=== PATIENT | female | born 1930 | race Caucasian/White ===

== ENCOUNTER → 2016-05-18 | Outpatient (CLI) | payer OTHER, BC | LOC: MMPC 09:00 | PROVIDERS: ATTEND Nurse Practitioner Family | DX: I10 Essential (primary) hypertension (principal) | CPT/HCPCS: 99214; G0463 ==

== ENCOUNTER → 2016-06-05 | Outpatient (CLI) | payer OTHER, BC ==
[2016-06-05 11:42] LABS: BILIRUBIN,TOTAL 0.8 mg/dL (0.3-1.2); CALCIUM 10.8 mg/dL (8.7-10.7); POTASSIUM 4.6 meq/L (3.8-5.2); TOTAL PROTEIN 7.7 g/dL (6.1-8.0)
[2016-06-08 10:59] LABS: METANEPHRINE FREE <0.20 nmol/L (<0.50)
== END ==
LOC: MOB LAB 10:42
PROVIDERS: ATTEND Nurse Practitioner Family
DX: R06.00 Dyspnea, unspecified (principal); I10 Essential (primary) hypertension; R42 Dizziness and giddiness
CPT/HCPCS: 36415; 80053; 83835; 83880; 84244

== ENCOUNTER → 2016-06-07 | Outpatient (CLI) | payer OTHER, BC ==
[2016-06-09 15:26] LABS: COLLECTION DURATION 24 h (())
[2016-06-09 18:53] LABS: URINE TOTAL VOLUME 550 mL (())
== END ==
LOC: LAB 08:09
PROVIDERS: ATTEND Nurse Practitioner Family
DX: I10 Essential (primary) hypertension (principal); R42 Dizziness and giddiness
CPT/HCPCS: 83835

== ENCOUNTER → 2016-06-08 | Outpatient (CLI) | payer OTHER, BC ==
--- NOTE | 2016-06-08 14:06 | DI ---
MRI BRAIN SCAN WITHOUT CONTRAST, 06/08/2016 12:39 PM: Clinical History: Dizziness. Previous Exam: None at this facility. Sequences: Sagittal T1; Axial [place] T2 and FLAIR. Axial diffusion weighted images with ADC mapping were also performed. The fourth ventricle is of normal size, shape, position and contour. The third and lateral ventricles are mildly dilated but are otherwise normal. There are multiple punctate periventricular white matte r hyperintensities bilaterally that extend into the watershed territory, consistent with small vessel ischemic disease. This amount of ischemic disease is appropriate for the patient's age. There is no cerebellar pontine angle mass in the views of both internal auditory canals have a normal appearance. Diffusion weighted imaging with ADC mapping is otherwise normal. There is mild cerebellar and modera tely severe cerebral atrophy There are no extracerebral mantels or shift of the midline structures. T he paranasal sinuses are normal. Readin. Small vessel ischemic disease. 2. Diffusion weighted imaging with ADC mapping is otherwise normal. 3. Mild cerebellar and moderately severe cerebral atrophy. 4. There is no evidence of a cerebellar pontine angle mass or obvious abnormality within the interna l auditory canals.
--- NOTE | 2016-06-08 16:11 | DI ---
DUPLEX COLOR DOPPLER CAROTID ULTRASOUND, 06/08/2016 12:40 PM: Clinical History: Dizziness. Previous Exam: None at this facility. Technique: 2D real time imaging is supplemented with duplex color doppler ultrasound imaging. RIGHT CAROTID ARTERY: 2D real time imaging of the right carotid system shows a normal appearance of the right carotid arter y, bulb, and the external and internal carotid arteries. Peak systolic velocities through the right c ommon carotid, the external carotid, and the internal carotid are 65 cm/s, 85 cm/s, and 73 cm/s, resp ectively. All values correspond to diameter stenoses of 0-49%. LEFT CAROTID ARTERY: 2D real time imaging of the left carotid system shows a normal appearance of the left common carotid artery, the carotid bulb, and the internal and external carotid arteries. Peak systolic velocities th rough the left common carotid, the external carotid, and the internal carotid are 94 cm/s, 72 cm/s, a nd 73 cm/s, respectively. All values correspond to diameter stenoses of 0-49%. VERTEBRAL ARTERIES: There is antegrade flow through both vertebral arteries Cardiac rhythm is regular. Peak systolic [place] through the visualized portions of the right and left vertebral arteries are 74 cm/s and 94 cm /s, respectively. These values correspond to diameter stenoses of 0-49%. There was sinus bradycardia present throughout the entire exam. The heart rate varied between 50-61 b eats per minute. Readin. There is no hemodynamically significant stenosis of either carotid system. 2. There is antegrade flow through both vertebral arteries. Cardiac rhythm is regular. 3. Sinus bradycardia with the heart rate varying between 50-61 beats per minute during the duration of this exam.
== END ==
LOC: US 12:32
PROVIDERS: ATTEND Nurse Practitioner Family
DX: R42 Dizziness and giddiness (principal); R00.1 Bradycardia, unspecified; I73.9 Peripheral vascular disease, unspecified; G31.9 Degenerative disease of nervous system, unspecified
CPT/HCPCS: 70551; 93880

== ENCOUNTER → 2016-06-11 | Outpatient (CLI) | payer OTHER, BC ==
--- NOTE | 2016-06-11 09:20 | DI ---
BILATERAL RENAL ULTRASOUND, 06/11/2016 7:50 AM: Clinical History: Labile hypertension. Previous Exam: None at this facility. Scans are performed through both kidneys in multiple projections. The right kidney measures 77 mm, an d the left kidney measures 82 mm. There is no solid or cystic mass in either kidney. There is no hydr onephrosis or hydroureter. Perfusion to both kidneys is symmetric and normal. The bladder is almost e mpty but normal. Bilateral ureteral jets are visualized. There is an estimated prevoid bladder volume of 25-30 mL. No post void films were obtained. Reading: Normal bilateral renal ultrasound. The bladder is barely filled but grossly normal.
== END ==
LOC: US 07:47
PROVIDERS: ATTEND Nurse Practitioner Family
DX: I10 Essential (primary) hypertension (principal); R42 Dizziness and giddiness
CPT/HCPCS: 76770

== ENCOUNTER → 2016-06-12 | Outpatient (CLI) | payer OTHER, BC ==
--- NOTE | 2016-06-12 14:16 | EKG ---
[address] [address] Measurements Intervals [place] Rate: 62 P: 63 [place]: 145 QRS: 81 QRSD: 80 T: 66 QT: 410 QTc: 416 Interpretive Statements SINUS RHYTHM POSSIBLE RIGHT VENTRICULAR CONDUCTION DELAY Compared to ECG 08/26/2015 10:35:30 No significant changes Electronically Signed On 06-12-16 17:04:47 MST by Austen Beltran [email or web address]
== END ==
LOC: MOB EKG 14:00
PROVIDERS: ATTEND Specialist
DX: R42 Dizziness and giddiness (principal); R06.02 Shortness of breath; I10 Essential (primary) hypertension; I49.1 Atrial premature depolarization; I47.1 Supraventricular tachycardia; I50.9 Heart failure, unspecified
CPT/HCPCS: 93005; 93010; 99204; G0463

== ENCOUNTER → 2016-06-26 | Outpatient (CLI) | payer OTHER, BC ==
--- NOTE | 2016-06-26 11:44 | DI ---
XR CXR 2VW PA/LAT,06/26/2016 11:00 AM: Clinical History: Hypertension. Previous Exam: None at this facility. Findings: PA and lateral views of the chest are obtained, and demonstrate diffuse COPD. Lungs are clear. The ca rdiomediastinum and bony thorax are unremarkable. Impression: No acute disease.
== END ==
LOC: MOB RAD 11:04
PROVIDERS: ATTEND Specialist
DX: I10 Essential (primary) hypertension (principal); J44.9 Chronic obstructive pulmonary disease, unspecified
CPT/HCPCS: 71020

== ENCOUNTER → 2016-06-27 | Outpatient (CLI) | payer OTHER, BC | LOC: MMPC 09:00 | PROVIDERS: ATTEND Nurse Practitioner Family | DX: I10 Essential (primary) hypertension (principal); H81.43 Vertigo of central origin, bilateral; F03.90 Unspecified dementia, unspecified severity, without behavioral disturbance, psychotic disturbance, mood disturbance, and anxiety | CPT/HCPCS: 99214; G0463 ==

== ENCOUNTER → 2016-07-04 | Outpatient (CLI) | payer OTHER, BC | LOC: US 12:39 | PROVIDERS: ATTEND Specialist | DX: I27.2 Other secondary pulmonary hypertension (principal); I35.1 Nonrheumatic aortic (valve) insufficiency; R06.00 Dyspnea, unspecified | CPT/HCPCS: 93306 ==

== ENCOUNTER → 2016-08-21 | Outpatient (CLI) | payer OTHER, BC | LOC: MMPC 09:00 | PROVIDERS: ATTEND Nurse Practitioner Family | DX: I10 Essential (primary) hypertension (principal); F03.90 Unspecified dementia, unspecified severity, without behavioral disturbance, psychotic disturbance, mood disturbance, and anxiety; M54.5 Low back pain | CPT/HCPCS: 99214; G0463 ==

== ENCOUNTER → 2016-09-20 | Outpatient (CLI) | payer OTHER, BC | LOC: MMPC 09:00 | PROVIDERS: ATTEND Nurse Practitioner Family | DX: M54.41 Lumbago with sciatica, right side (principal) | CPT/HCPCS: 99214; G0463 ==

== ENCOUNTER 2016-10-01 21:18 | Inpatient (IN) | payer OTHER, BC ==
[2016-10-01] MEDS ORDERED: Sodium Chloride 0.9% 1,000 ML PRIMARY IV ONE (21:42)
--- NOTE | 2016-10-01 21:50 | PDOC ---
Lower Extremity Problem HPI - General Chief Complaint: Lower Extremity Problem/Injury Stated Complaint: Leg pain, with nausea Date Seen by Provider: 10/01/16 Time Seen by Provider: 21:44 Source: POSITIVE: Patient, Spouse, Other (Son) Exam Limitations: POSITIVE: Other (Dementia) Nurse's Notes Reviewed & Considered: Yes - History of Present Illness Initial Comments: This very pleasant 85-year-old demented lady comes in today with a chief complaint of leg swelling in her left lower extremity and back pain. Patient denies any headache, no chest pain or shortness of breath, no nausea vomiting or diarrhea, no fever chills or sweats, no rashes. Patient is alert and oriented to person and place but not time. Body Location Affected: REPORTS: Lower Extremity (L), Back Timing: REPORTS: Unknown Duration: Unknown Severity: Moderate Recent Injury: REPORTS: No Location at Time of Onset: REPORTS: Home Quality: REPORTS: Cramping Modifying Factors: REPORTS: Movement, Rest Similar Symptoms Previously: No Recent Care Received: REPORTS: Denies Any Prior Injuries Related to Current Complaint?: No - Patient Home Medications Home Medications: Home Medications Multivitamin with Minerals [One Daily 50 Plus] 1 tab PO QD tab 09/03/13 Cyanocobalamin (Vitamin B-12) [Vitamin B12] 2,500 mcg PO DAILY tab 08/21/16 [place]-3 Fatty Acids/Fish Oil [[place] 3 Fish Oil Softgel] 1 each PO DAILY cap Apixaban [Eliquis] 1 tab PO BID #60 tablet 10/08/16 Chlorthalidone 0.5 tab PO QD PRN #30 tab 10/08/16 Memantine HCl 1 tab PO BID #60 tab 10/08/16 Verapamil HCl [Verapamil Sr] 1 cap PO QD #30 cap 10/08/16 - Patient Allergies Allergies/Adverse Reactions: Allergies Allergy/AdvReac Type Severity Reaction Status Date / Time sulfamethoxazole Allergy Mild RASH Verified 10/04/16 08:28 trimethoprim Allergy Mild RASH Verified 10/04/16 08:28 ROS - Limitations ROS Limitations: Mental Impairment (Further review of systems is unavailable because the patient's dementia.) Lower Ext Problem Exam - General Appearance General Appearance: POSITIVE: Alert, Cooperative, No Acute Distress, No Evidence of Trauma - Extremities Lower Extremity: POSITIVE: Tenderness (Positive Homans left calf), Swelling, Pedal Edema Joint Exam: POSITIVE: Joints Normal, Normal ROM, Normal Gait, Normal Weight Bearing Vascular: POSITIVE: No Vascular Compromise, Full Pulses, Equal Pulses - Neuro / Psych Neuro/Psych: POSITIVE: Sensation Normal, Motor Normal, Oriented to Person, Oriented to Place, Disoriented to Time - Neck / Back / Pelvis Back / Neck: POSITIVE: Normal Inspection, Normal ROM Pelvis: Stable by compression - Skin Skin: POSITIVE: Normal Color, Warm, Dry, No Rash - HEENT HEENT: POSITIVE: Head Inspection Nml, Eyes Inspection Nml, Ears Inspection Nml, Nose Inspection Nml, Oral/Dental Inspect. Nml, Pharynx Inspect. Nml, PERRL, EOMI - Respiratory / CVS Respiratory / CVS: POSITIVE: No Respiratory Distress, Breath Sounds Normal, Regular Rate/Rhythm, Heart Sounds Normal - Abdomen Abdomen: Soft: (All Quadrants), Normal Bowel Sounds: (All Quadrants), Denies Tenderness: (All Quadrants), No Splenomegaly: (All Quadrants), No Hepatomegaly: (All Quadrants), No Guarding: (All Quadrants), No Rebound: (All Quadrants), No Palpable Pulse: (All Quadrants), No Palpabale Mass: (All Quadrants), No Distention: (All Quadrants), No Rigidity: (All Quadrants) Images - Uploaded Photos Uploaded Photos: Lower Ext Problem Progress - Results Reviewed by me Lab Results Reviewed: Yes - Patient's Progress Re-Examine Time: 22:24 Status: POSITIVE: Unchanged MDM / ED Course: Patient was evaluated, IV started, blood drawn and sent to the lab for studies, radiographic examinations as well as EKG were obtained. Findings: Liver functions show AST and ALTs to be elevated. Potassium is elevated at 5.1. Creatinine is elevated at 1.6, this is an increase from 1 just a short 3 months ago. Assessment: 1 swelling of left lower extremity. #2 derangement of LFTs. #3 hypokalemia. #4 renal insufficiency. 5 dementia. - Consult Consulting MD will see pt:: POSITIVE: [facility] [place] Admit Counseled: POSITIVE: Patient, Family, RE: Lab Results, RE: Radiology Results, RE : DX Patient Care Time - Estimated PCT Patient Care Time (In Minutes): 30 Vital Signs - VS Reviewed Vital Signs Reviewed: Yes Discharge Clinical Impression: DVT (deep venous thrombosis) Discharge Disposition: Admit to Inpatient Condition: Stable Date Decision to Admit to Inpatient: 10/01/16 Time Decision to Admit to Inpatient: 22:24
[2016-10-01 21:54] LABS: BASOPHILS # (AUTO) 0.06 10*3/UL; BASOPHILS % (AUTO) 0.6 % (0-1); EOSINOPHILS # (AUTO) 0.31 10*3/UL; EOSINOPHILS % (AUTO) 2.9 % (0-8); HEMATOCRIT 38.7 % (37.0-47.0); HEMOGLOBIN 12.5 g/dL (12.0-16.0); LYMPHOCYTES # (AUTO) 1.41 10*3/uL; MEAN CORPUSCULAR HGB CONC 32.3 g/dL (33-37); MEAN PLATELET VOLUME 10.9 FL (7.4-12.2); MONOCYTES # (AUTO) 0.86 10*3/UL (0.3-0.8); NEUTROPHILS % (AUTO) 74.7 % (50-80); PLATELET MORPHOLOGY COMMENT NORMAL MORPHOLOGY (NORM); RBC MORPHOLOGY COMMENT NORMAL MORPHOLOGY (NORM); RED BLOOD COUNT 4.03 10^6/uL (4.20-5.40); WBC MORPHOLOGY COMMENT NORMAL MORPHOLOGY (NORM)
--- NOTE | 2016-10-01 21:56 | EKG ---
[address] [address] Measurements Intervals [place] Rate: 75 P: 65 [place]: 141 QRS: 63 QRSD: 80 T: 57 QT: 367 QTc: 396 Interpretive Statements SINUS RHYTHM Compared to ECG 06/12/2016 15:19:19 No significant changes Electronically Signed On 10-02-16 08:16:46 MDT by Edmar Zamarripa MD [id number]
[2016-10-01 22:06] LABS: BLOOD UREA NITROGEN 39 mg/dL (7-22); BUN/CREATININE RATIO 24.37 (6-20); C-REACTIVE PROTEIN 1.7 mg/dL (0.0-0.9); CALCIUM 10.6 mg/dL (8.7-10.7); MAGNESIUM 2.8 mg/dL (1.6-2.4); SERUM ALBUMIN 4.1 g/dL (3.5-4.8)
[2016-10-01 22:32] LABS: LIPASE 148 IU/L (23-300)
[2016-10-02] MEDS ORDERED: NORMAL SALINE 10 ML SYRINGE FLUSH IVP PRN (00:26)
[2016-10-02] MEDS ORDERED: HEPARIN 5000 UNIT/1 ML SUBCUT SCH (00:26)
[2016-10-02] MEDS ORDERED: LIDOCAINE W/ SODIUM BICARB 0.5 ML SYR SUBD PRN (00:26)
[2016-10-02] MEDS ORDERED: VERAPAMIL HCL PO SCH (00:26)
[2016-10-02] MEDS ORDERED: CALCIUM CARBONATE 500 MG (TUMS) CHEWABLE TABLET PO PRN (00:26)
[2016-10-02] MEDS ORDERED: ONDANSETRON 4 MG/2 ML VIAL IVP PRN (00:26)
[2016-10-02] MEDS ORDERED: HYDROmorphone 2 MG/1 ML IVP PRN (00:26)
--- NOTE | 2016-10-02 00:26 | DI ---
HISTORY: Low back pain. COMPARISON: CT bone density performed 12/13/2009. FINDINGS: AP and lateral views of the lumbar spine are obtained, and demonstrate a compression defor mity of the superior endplate of the fifth lumbar vertebral body. There is also compression of the s uperior endplate of the first lumbar vertebral body. This compression was seen back in 2009. There is a sclerotic lesion involving the superior endplate of the third lumbar vertebral body as wel l. Mild facet hypertrophy is noted. Vague spotty calcifications are noted over the abdomen which may represent prior administration of or al contrast. IMPRESSION: 1. Compression deformities of the superior endplates of L1 and L5. The former was seen dating back t o 2009, but the L5 compression deformity is new since 2009. 2. Sclerotic focus involving the superior endplate of L3. This measures 1.6 x 0.9 x 0.9 cm. RECOMMENDATION: Consider MRI lumbar spine for further evaluation as this would be able to grade the L5 fracture or acute the and the sclerotic lesion involving the superior endplate of the third lumbar vertebral body. NOTIFICATION: The above findings were phoned to Lucas Ferraro in the ER Department on 10/02/2016 at 02:3 8 AM EST.
--- NOTE | 2016-10-02 00:32 | DI ---
HISTORY: Left leg swelling. COMPARISON: None available. TECHNIQUE: Multiple grayscale and color Doppler sonographic images are obtained through the deep vei ns of the left lower extremity. FINDINGS: Examination demonstrates noncompressibility of a long segment of the superficial femoral a rtery through popliteal artery. There is still some visible flow with respiratory variation. IMPRESSION: 1. Evidence of a nonocclusive thrombus through the left superficial femoral vein through popliteal ve in. NOTIFICATION: The above findings were phoned to Lucas Ferraro in the ER Department on 10/02/2016 at 02:3 8 AM EST. NOTE: The interpreting Radiologist was not present at the time of ultrasound interrogation.
--- NOTE | 2016-10-02 00:40 | PDOC ---
History and Physical - History of Present Illness Date and Time of Service: 10/01/2016, 2330 Chief Complaint: Leg pain History of Present Illness: This very pleasant 85-year-old female who unfortunately suffers from moderate dementia and cannot provide a great history. The history is obtained from her son and from her . The story goes that earlier this month sometime around the , the patient developed back pain was quite severe. She was pulling weeds in her flower garden and when she came up she developed back pain. She's been in rehabilitation with physical therapy since that time, has been on narcotics, recently Aleve, and the back pain has reduced. After therapy today and over the last 3 days, the patient has had increased leg pain bilaterally, and the patient came into the emergency room tonight for that. Her has been trying some ankle sprains and muscle creams and he felt like they were having some minimal success. He tried to convince patient to consider coming into the hospital a couple days ago but it was decided to wait things out and see how the creams and medications like Aleve would help. As there were not helping today, the patient's convince the patient, who likes to be called "Ronda", that she should come in for evaluation and she agreed. No fevers and no chills. This pain has not been present before. The patient has been noticeably immobile over the past couple of weeks with her back injury. In the emergency room when I saw the patient, she was having her ultrasound actively done to screen for DVT and it appeared positive for DVT in the femoral vein on the left lower extremity. The patient was also noted to have renal failure with an increased creatinine, and elevated potassium, and liver enzymes that were in the 300s. Past Medical History Medical History: 1. Hypertension. 2. Dementia. 3. Osteoporosis. 4. History of breast cancer status post left mastectomy. Remote. Surgical History: 1. Left mastectomy. 2. Cholecystectomy. 3. Hysterectomy Pertinent Family History: Father had history of prostate problems and after prostate surgery Hospital. Mother had heart disease reportedly and dementia. Past Social History: Does not smoke or drink. for 67 years. Has children that live here in [place]. She lives at home with her . Tobacco Use: Never Smoker Substance Use Type: None Alcohol Use: None Medication / Allergies Home Medications: Home Medications Medication Instructions Recorded Confirmed Type Multivitamin with Minerals [One 1 tab PO QD tab 09/03/13 10/01/16 History Daily 50 Plus] Olmesartan Medoxomil 1 tab PO QHS #30 tab 06/27/16 10/01/16 Clinic Chlorthalidone 0.5 tab PO QD #30 tab 08/21/16 10/01/16 Clinic Cyanocobalamin (Vitamin B-12) 2,500 mcg PO DAILY tab 08/21/16 10/01/16 History [Vitamin B12] Memantine HCl 1 tab PO BID #60 tab 08/21/16 10/01/16 Clinic [place]-3 Fatty Acids/Fish Oil 1 each PO DAILY cap 08/21/16 10/01/16 History [[place] 3 Fish Oil Softgel] Verapamil HCl [Verapamil Sr] 1 cap PO QD #30 cap 08/21/16 10/01/16 Clinic Oxycodone HCl 1 tab PO Q4-6H PRN #30 tab 09/27/16 10/01/16 Clinic Naproxen Sodium [Aleve] 220 mg PO PRN PRN 10/01/16 10/01/16 History Tramadol HCl 50 mg PO BEDTIME 10/01/16 10/01/16 History Allergies/Adverse Reactions: Allergies Allergy/AdvReac Type Severity Reaction Status Date / Time sulfamethoxazole Allergy Mild RASH Verified 10/01/16 21:34 trimethoprim Allergy Mild RASH Verified 10/01/16 21:34 Review of Systems - Review of Systems ROS Unobtainable: Due to Mental Status (This very difficult to obtain a reliable review of systems given the patient's dementia, but it is as per noted below and otherwise negative and as per history present illness.) - Constitutional Constitutional: REPORTS: Other (Negative for fevers and chills, but positive for recent weakness due to back pain. Positive for immobility.) - Respiratory Respiratory: DENIES: Negative System Review, Cough, Sputum, Dyspnea At Rest, Dyspnea with Exertion, Pleuritic Pain, Hemoptysis, Wheezing, Other, See HPI - Cardiovascular Cardiovascular: DENIES: Negative System Review, Chest Pain, Edema, Syncope, Palpitations, Orthopnea, Paroxysmal Nocturnal Dyspnea, Other, See HPI - Gastrointestinal Gastrointestinal / Abdominal: REPORTS: Nausea, Constipation (It should be due to narcotics, but apparently the nausea was improved with a bowel movement today ) - Genitourinary Genitourinary: DENIES: Negative System Review, Pain, Burning, Hematuria, Incontinence, Urgency, Hesitant Stream, Decreased Stream, Nocutria, Discharge, Sexual Dyfunction, Other, See HPI - Musculoskeletal Musculoskeletal: REPORTS: Calf Pain, Other (Leg pain bilaterally.) - Neurological Neurologic: REPORTS: Memory Loss (With dementia. No difference noted on Namenda. Could not tolerate Exelon) Exam - Vitals Vital Signs: Vital Signs - Last Taken Temperature 97.3 F 10/01/16 21:20 Pulse Rate 83 10/01/16 21:20 Respiratory Rate 16 10/01/16 21:20 Blood Pressure 136/64 10/01/16 21:20 Pulse Ox 99 10/01/16 21:20 - General General Appearance: POSITIVE: No Acute Distress, Cooperative - Head Head Exam: POSITIVE: Normal Inspection, Normocephalic, Atraumatic - Eye Eye Exam: POSITIVE: No Scleral Icterus - ENT ENT Exam: POSITIVE: Mucous Membranes Moist - Neck Neck Exam: POSITIVE: Normal Inspection, No Tenderness, No Thyromegaly - Respiratory Respiratory Exam: POSITIVE: Clear to Auscultation - Bilaterally, Breathing Non Labored, Normal to Percussion and Palpation - Cardiovascular Cardiovascular Exam: POSITIVE: RRR, No Murmur, No Clicks, No Gallops, No Rubs, No JVD - GI/Abdominal GI/Abdominal Exam: POSITIVE: Normal Bowel Sounds, Non Tender, Non Distended, Soft - Rectal Rectal Exam: POSITIVE: Deferred - External Exam: POSITIVE: Deferred Exam: POSITIVE: Deferred - Extremities Extremities Exam: POSITIVE: No Clubbing Present, No Edema Present, No Cyanosis Present, Calf Tenderness (Mild on left side.) - Back Back Exam: POSITIVE: No CVA Tenderness - Neurological Neurological Exam: POSITIVE: Alert, Speech Intact / Clear, Moves All Extremities Equally, Altered Additional Neurological Exam Details: The patient is clearly demented. She has an upbeat mood and does not seem depressed. No description of behavioral disturbances. - Psychiatric Psychiatric Exam: POSITIVE: Normal Mood - Central Line Examination Central Line Present on Admission: No Results - Labs CBC and BMP: 10/01/16 21:46 10/01/16 21:46 Labs - Last 24 Hours: Laboratory Results 10/01/16 10/01/16 Range/Units 21:46 21:52 WBC 10.70 (4.8-10.8) 10^3/uL RBC 4.03 L (4.20-5.40) 10^6/uL Hgb 12.5 (12.0-16.0) g/dL Hct 38.7 (37.0-47.0) % MCV 96.0 (81-99) FL MCH 31.0 (27-31) PG MCHC 32.3 L (33-37) g/dL RDW Std Deviation 43.5 (39-50) fL RDW Coeff of Deshawn 12.8 (11.5-14.5) % Plt Count 181 (140-350) 10*3/uL MPV 10.9 (7.4-12.2) FL Immature Gran % (Auto) 0.6 (0-5) % Neut % (Auto) 74.7 (50-80) % Lymph % (Auto) 13.2 (10-50) % [place] % (Auto) 8.0 (5-15) % Eos % (Auto) 2.9 (0-8) % Baso % (Auto) 0.6 (0-1) % Immature Gran # (Auto) 0.06 10*3/UL Neut # (Auto) 8.00 10*3/UL Lymph # (Auto) 1.41 10*3/uL [place] # (Auto) 0.86 H (0.3-0.8) 10*3/UL Eos # (Auto) 0.31 10*3/UL Baso # (Auto) 0.06 10*3/UL WBC Morphology Comment Normal morphology (NORM) Plt Morphology Comment Normal morphology (NORM) RBC Morph Comment Normal morphology (NORM) Sodium 137 (135-145) meq/L Potassium 5.7 H (3.8-5.2) meq/L Chloride 97 L (98-112) meq/L Carbon Dioxide 30 (23-33) meq/L Anion Gap 10 (5-20) BUN 39 H (7-22) mg/dL Creatinine 1.6 H (0.50-1.20) mg/dL Estimated GFR Associate Program Manager BUN/Creatinine Ratio 24.37 H (6-20) Glucose 98 (78-110) mg/dL Calculated Osmolality 292.0 (267-292) mOsm/kg Calcium 10.6 (8.7-10.7) mg/dL Magnesium 2.8 H (1.6-2.4) mg/dL Total Bilirubin 1.0 (0.3-1.2) mg/dL AST 305 H (8-39) IU/L ALT 309 H (9-52) IU/L Alkaline Phosphatase 280 H (38-126) IU/L C-Reactive Protein 1.7 H (0.0-0.9) mg/dL Total Protein 7.4 (6.1-8.0) g/dL Albumin 4.1 (3.5-4.8) g/dL Globulin 3.3 (2.50-4.10) g/dL Albumin/Globulin Ratio 1.20 L (1.3-2.0) mg/g Amylase 159 H (30-110) U/L Lipase 148 (23-300) IU/L Assessment and Plan - Patient Problems (1) DVT, femoral, acute Current Visit: Yes Status: Acute Qualifiers: Laterality: left Qualified Description: Acute deep vein thrombosis (DVT ) of femoral vein of left lower extremity Qualifier Code(s): (I82.412) Acute embolism and thrombosis of left femoral vein (2) Deep venous thrombosis of left popliteal vein Current Visit: Yes Status: Acute Qualifiers: Chronicity: acute Qualified Description: Acute deep vein thrombosis ( DVT) of popliteal vein of left lower extremity Qualifier Code(s): (I82.432 ) Acute embolism and thrombosis of left popliteal vein (3) Acute renal failure Current Visit: Yes Status: Acute Qualifiers: Acute renal failure type: unspecified Qualified Description: Acute renal failure, unspecified acute renal failure type Qualifier Code(s): ( N17.9) Acute kidney failure, unspecified (4) Elevated liver enzymes Current Visit: Yes Status: Acute (5) Hypertension Current Visit: Yes Status: Acute Qualifiers: Hypertension type: essential hypertension Qualified Description: Essential hypertension Qualifier Code(s): (I10) Essential (primary) hypertension (6) Dementia Current Visit: Yes Status: Acute Qualifiers: Dementia type: Alzheimer's disease Alzheimer's disease onset: late- onset Dementia behavioral disturbance: without behavioral disturbance Qualified Description: Late onset Alzheimer's disease without behavioral disturbance Qualifier Code(s): (G30.1) Alzheimer's disease with late onset , (F02.80) Dementia in other diseases classified elsewhere without behavioral disturbance - Assessment / Plan Additional Assessment/Plan Details: Admit the patient. IV fluids for the renal failure and hold chlorthalidone and angiotensin receptor dileep. I think it is prerenal azotemia. Discontinue the anti-inflammatory for now. Patient has been on Aleve for back pain at home. Get a right upper quadrant ultrasound to evaluate the liver. Check labs tomorrow. I'll let the patient eat after her ultrasound is done. I discussed anticoagulants with the patient, her , and her son who is a pharmacist. They chose eliquis and will start that. I think this is provoked, so I would presume to think that we can treat this for 3-6 months and then discontinue therapy. I did recommend 6 months. I discussed CODE STATUS but the patient is not sure if she wants to be full code or not. She wants to discuss this further with her and son. The plan above was discussed in detail, and the patient, her , and her son agree.
[2016-10-02] MEDS ORDERED: Apixaban 5 MG TABLET PO ONE (00:59)
[2016-10-02 01:19] LABS: BILIRUBIN,URINE NEGATIVE (NEG); CLARITY,URINE CLEAR (CLEAR); COLOR,URINE YELLOW; GLUCOSE, URINE (UA) NEGATIVE (NEG); NITRATE,URINE NEGATIVE (NEG); OCCULT BLOOD,URINE NEGATIVE (NEG); PROTEIN,URINE NEGATIVE (NEG); URINE SAMPLE TYPE CATH SPECIMEN; UROBILINOGEN,URINE 0.2 EU/dL (0.2)
--- NOTE | 2016-10-02 01:46 | DI ---
HISTORY: Elevated liver enzymes. TECHNIQUE: Sonographic images of the abdomen were obtained, and the images were submitted for interp retation. FINDINGS: Normal right upper quadrant status post cholecystectomy with limited evaluation of the panc reas. IMPRESSION: 1. Normal right upper quadrant status post cholecystectomy with limited evaluation of the pancreas. NOTE: The interpreting Radiologist was not present at the time of ultrasound interrogation.
[2016-10-02] MEDS: Sodium Chloride 0.9% 1,000 ML PRIMARY IV SCH ×3 (02:04→19:13)
[2016-10-02 04:49] LABS: BASOPHILS # (AUTO) 0.04 10*3/UL; BASOPHILS % (AUTO) 0.5 % (0-1); EOSINOPHILS # (AUTO) 0.28 10*3/UL; EOSINOPHILS % (AUTO) 3.7 % (0-8); HEMOGLOBIN 11.1 g/dL (12.0-16.0); LYMPHOCYTES # (AUTO) 1.33 10*3/uL; MEAN CORPUSCULAR HEMOGLOBIN 30.7 PG (27-31); MEAN CORPUSCULAR HGB CONC 31.7 g/dL (33-37); MEAN CORPUSCULAR VOLUME 96.7 FL (81-99); MEAN PLATELET VOLUME 11.2 FL (7.4-12.2); MONOCYTES # (AUTO) 0.61 10*3/UL (0.3-0.8); NEUTROPHILS # (AUTO) 5.32 10*3/UL; NEUTROPHILS % (AUTO) 69.9 % (50-80); RED BLOOD COUNT 3.62 10^6/uL (4.20-5.40)
[2016-10-02 04:58] LABS: BLOOD UREA NITROGEN 36 mg/dL (7-22); BUN/CREATININE RATIO 25.71 (6-20); CALCIUM 9.8 mg/dL (8.7-10.7); SERUM ALBUMIN 3.4 g/dL (3.5-4.8)
[2016-10-02 06:11] LABS: PLATELET MORPHOLOGY COMMENT NORMAL MORPHOLOGY (NORM); RBC MORPHOLOGY COMMENT NORMAL MORPHOLOGY (NORM); WBC MORPHOLOGY COMMENT NORMAL MORPHOLOGY (NORM)
[2016-10-02] MEDS: VERAPAMIL 240 MG PO SCH (08:38)
[2016-10-02] MEDS ORDERED: VERAPAMIL HCL 120 MG PO SCH (09:00)
[2016-10-02] MEDS ORDERED: ACETAMINOPHEN 325 MG TABLET PO PRN (16:56)
[2016-10-02] MEDS ORDERED: traMADol 50 MG TABLET PO PRN (16:56)
--- NOTE | 2016-10-02 17:53 | PDOC(PROG) ---
Date and Time of Service: 10/02/2016, 1750 Interval History: Patient seen and evaluated a couple of times today. No completes of chest pain , shortness breath, nausea or vomiting. Back pain is better. Leg pain seems to be better. Creatinine is improved. X-ray of lumbar spine shows new L5 compression fracture and a sclerotic lesion at L3. Objective : Data - Labs CBC and BMP: 10/02/16 04:40 10/02/16 04:40 Labs - Last 24 Hours: Laboratory Results 10/02/16 10/02/16 Range/Units 00:00 04:40 WBC 7.61 (4.8-10.8) 10^3/uL RBC 3.62 L (4.20-5.40) 10^6/uL Hgb 11.1 L (12.0-16.0) g/dL Hct 35.0 L (37.0-47.0) % MCV 96.7 (81-99) FL MCH 30.7 (27-31) PG MCHC 31.7 L (33-37) g/dL RDW Std Deviation 43.1 (39-50) fL RDW Coeff of Deshawn 12.7 (11.5-14.5) % Plt Count 146 (140-350) 10*3/uL MPV 11.2 (7.4-12.2) FL Immature Gran % (Auto) 0.4 (0-5) % Neut % (Auto) 69.9 (50-80) % Lymph % (Auto) 17.5 (10-50) % Glenn % (Auto) 8.0 (5-15) % Eos % (Auto) 3.7 (0-8) % Baso % (Auto) 0.5 (0-1) % Immature Gran # (Auto) 0.03 10*3/UL Neut # (Auto) 5.32 10*3/UL Lymph # (Auto) 1.33 10*3/uL Glenn # (Auto) 0.61 (0.3-0.8) 10*3/UL Eos # (Auto) 0.28 10*3/UL Baso # (Auto) 0.04 10*3/UL WBC Morphology Comment Normal morphology (NORM) Plt Morphology Comment Normal morphology (NORM) RBC Morph Comment Normal morphology (NORM) Sodium 138 (135-145) meq/L Potassium 4.7 (3.8-5.2) meq/L Chloride 103 (98-112) meq/L Carbon Dioxide 27 (23-33) meq/L Anion Gap 8 (5-20) BUN 36 H (7-22) mg/dL Creatinine 1.4 H (0.50-1.20) mg/dL Estimated GFR Paper Sorter BUN/Creatinine Ratio 25.71 H (6-20) Glucose 86 (78-110) mg/dL Calculated Osmolality 292.0 (267-292) mOsm/kg Calcium 9.8 (8.7-10.7) mg/dL Total Bilirubin 1.0 (0.3-1.2) mg/dL AST 354 H (8-39) IU/L ALT 339 H (9-52) IU/L Alkaline Phosphatase 258 H (38-126) IU/L Total Protein 6.2 (6.1-8.0) g/dL Albumin 3.4 L (3.5-4.8) g/dL Globulin 2.8 (2.50-4.10) g/dL Albumin/Globulin Ratio 1.20 L (1.3-2.0) mg/g Ur Collection Type Cath specimen Urine Color Yellow Urine Clarity Clear (CLEAR) Urine pH 7.0 (5.0-8.5) Ur Specific Edwards 1.010 (1.005-1.030) Urine Protein Negative (NEG) mg/dl Urine Glucose (UA) Negative (NEG) mg/dL Urine Ketones Negative (NEG) Urine Occult Blood Negative (NEG) Urine Nitrate Negative (NEG) Urine Bilirubin Negative (NEG) Urine Urobilinogen 0.2 (0.2) EU/dL Ur Leukocyte Esterase Negative (NEG) Ur Culture Indicated? Culture not set - Imaging X-Ray Status: Image Reviewed by Me (I looked at the lumbar films. There are 2 compression fractures, L1 and L5. There is a sclerotic lesion that has increased opacity that the radiologist felt was sclerotic.) Objective : Exam - General General Appearance: No Acute Distress, Cooperative Additional General Exam Details: Vital Signs - Last Taken Temperature 97.6 F 10/02/16 17:00 Pulse Rate 74 10/02/16 17:00 Respiratory Rate 20 10/02/16 17:00 Blood Pressure 143/48 10/02/16 17:00 Pulse Ox 94 06/27/17 17:00 - Head Head Exam: Normal Inspection, Normocephalic, Atraumatic - Eye Eye Exam: No Scleral Icterus - ENT ENT Exam: Mucous Membranes Moist - Respiratory Respiratory Exam: Clear to Auscultation - Bilaterally, Breathing Non Labored - Cardiovascular Cardiovascular Exam: RRR, No Murmur, No Clicks, No Gallops, No Rubs, No JVD - GI/Abdominal GI/Abdominal Exam: Normal Bowel Sounds, Non Tender, Non Distended, Soft - Extremities Extremities Exam: No Clubbing Present, No Edema Present, No Cyanosis Present Additional Extremities Exam Details: No calf tenderness today. - Neurological Neurological Exam: Alert, Oriented x 3, No Facial Droop, Speech Intact / Clear, Moves All Extremities Equally Assessment and Plan - Patient Problems (1) DVT, femoral, acute Current Visit: Yes Status: Acute Qualifiers: Laterality: left Qualified Description: Acute deep vein thrombosis (DVT ) of femoral vein of left lower extremity Qualifier Code(s): (I82.412) Acute embolism and thrombosis of left femoral vein (2) Deep venous thrombosis of left popliteal vein Current Visit: Yes Status: Acute Qualifiers: Chronicity: acute Qualified Description: Acute deep vein thrombosis ( DVT) of popliteal vein of left lower extremity Qualifier Code(s): (I82.432 ) Acute embolism and thrombosis of left popliteal vein (3) Acute renal failure Current Visit: Yes Status: Acute Comment: Improving, probably prerenal. Qualifiers: Acute renal failure type: unspecified Qualified Description: Acute renal failure, unspecified acute renal failure type Qualifier Code(s): ( N17.9) Acute kidney failure, unspecified (4) Elevated liver enzymes Current Visit: Yes Status: Acute Comment: Increase to some degree. Unclear etiology. Ultrasound negative. (5) Hypertension Current Visit: Yes Status: Acute Qualifiers: Hypertension type: essential hypertension Qualified Description: Essential hypertension Qualifier Code(s): (I10) Essential (primary) hypertension (6) Dementia Current Visit: Yes Status: Acute Qualifiers: Dementia type: Alzheimer's disease Alzheimer's disease onset: late- onset Dementia behavioral disturbance: without behavioral disturbance Qualified Description: Late onset Alzheimer's disease without behavioral disturbance Qualifier Code(s): (G30.1) Alzheimer's disease with late onset , (F02.81) Dementia in other diseases classified elsewhere with behavioral disturbance - Assessment / Plan Additional Assessment/Plan Details: I think we should go ahead and proceed with an MRI scan to look at the sclerotic lesion in detail. I do not think the patient is a good surgical candidate regardless of findings. If suspicious for cancer, can consider biopsy. Pain control. Continue IV fluids. Continue eliquis Discussed with family members. They agree with the plan. Check labs tomorrow.
[2016-10-02] MEDS ORDERED: Apixaban Tab 2.5 MG TABLET PO SCH (21:00)
[2016-10-02] MEDS: Apixaban 5 MG TABLET PO SCH (21:09)
[2016-10-03] MEDS: Sodium Chloride 0.9% 1,000 ML PRIMARY IV SCH ×2 (04:00→14:22)
[2016-10-03 06:08] LABS: BUN/CREATININE RATIO 20.83 (6-20); CALCIUM 9.1 mg/dL (8.7-10.7)
[2016-10-03] MEDS: VERAPAMIL 240 MG PO SCH (09:27)
[2016-10-03] MEDS: Apixaban 5 MG TABLET PO SCH ×2 (09:27→20:35)
[2016-10-03] MEDS ORDERED: MEMANTINE 10 MG TABLET PO ONE (13:19)
[2016-10-03] MEDS: MEMANTINE 10 MG TABLET PO SCH (13:34)
--- NOTE | 2016-10-03 15:01 | PDOC(PROG) ---
Date and Time of Service: 09/25/2016, 1500 Interval History: Patient seen a little bit earlier this afternoon. Resting easily. Knows that she is in a healthcare setting can't give me much more details than that. No nausea or vomiting. No chest pain and no shortness breath. Family is concerned that the patient is a little more confused today, and maybe this is an effective the Namenda being discontinued. I have resumed that medication. Objective : Data - Labs CBC and BMP: 10/02/16 04:40 10/03/16 05:40 Labs - Last 24 Hours: Laboratory Results 10/03/16 Range/Units 05:40 Sodium 141 (135-145) meq/L Potassium 3.9 (3.8-5.2) meq/L Chloride 112 (98-112) meq/L Carbon Dioxide 23 (23-33) meq/L Anion Gap 6 (5-20) BUN 25 H (7-22) mg/dL Creatinine 1.2 (0.50-1.20) mg/dL Estimated GFR (>60 ml/min/1.73m(2)) BUN/Creatinine Ratio 20.83 H (6-20) Glucose 85 (78-110) mg/dL Calculated Osmolality 294.0 H (267-292) mOsm/kg Calcium 9.1 (8.7-10.7) mg/dL - Imaging MRI Status: Other (MRI scan is done, I viewed it, but could be some mild compression at L4-L5, but unclear. There is a compression fracture at L5. Age indeterminate. We cannot use contrast. And on my view there appears to be increased signal in the L3 vertebral body, and I'm awaiting the report on that.) Objective : Exam - General General Appearance: No Acute Distress, Cooperative Additional General Exam Details: Vital Signs - Last Taken Temperature 98.2 F 10/03/16 11:57 Pulse Rate 63 10/03/16 11:57 Respiratory Rate 16 10/03/16 11:57 Blood Pressure 109/52 10/03/16 11:57 Pulse Ox 95 10/03/16 11:57 - Respiratory Respiratory Exam: Clear to Auscultation - Bilaterally, Breathing Non Labored - Cardiovascular Cardiovascular Exam: RRR, No Murmur, No Clicks, No Gallops, No Rubs, No JVD - GI/Abdominal GI/Abdominal Exam: Normal Bowel Sounds, Non Tender, Non Distended, Soft - Extremities Extremities Exam: No Clubbing Present, No Edema Present, No Cyanosis Present Additional Extremities Exam Details: No further calf tenderness or leg pain or ankle pain. - Neurological Neurological Exam: Alert, No Facial Droop, Speech Intact / Clear, Moves All Extremities Equally, Altered Assessment and Plan - Patient Problems (1) DVT, femoral, acute Current Visit: Yes Status: Acute Qualifiers: Laterality: left Qualified Description: Acute deep vein thrombosis (DVT ) of femoral vein of left lower extremity Qualifier Code(s): (I82.412) Acute embolism and thrombosis of left femoral vein (2) Deep venous thrombosis of left popliteal vein Current Visit: Yes Status: Acute Qualifiers: Chronicity: acute Qualified Description: Acute deep vein thrombosis ( DVT) of popliteal vein of left lower extremity Qualifier Code(s): (I82.432 ) Acute embolism and thrombosis of left popliteal vein (3) Compression fracture of L5 lumbar vertebra Current Visit: Yes Status: Acute (4) Elevated liver enzymes Current Visit: Yes Status: Acute (5) Hypertension Current Visit: Yes Status: Acute Qualifiers: Hypertension type: essential hypertension Qualified Description: Essential hypertension Qualifier Code(s): (I10) Essential (primary) hypertension (6) Dementia Current Visit: Yes Status: Acute Qualifiers: Dementia type: Alzheimer's disease Alzheimer's disease onset: late- onset Dementia behavioral disturbance: without behavioral disturbance Qualified Description: Late onset Alzheimer's disease without behavioral disturbance Qualifier Code(s): (G30.1) Alzheimer's disease with late onset , (F02.81) Dementia in other diseases classified elsewhere with behavioral disturbance (7) Acute renal failure Current Visit: Yes Status: Resolved Qualifiers: Acute renal failure type: unspecified Qualified Description: Acute renal failure, unspecified acute renal failure type Qualifier Code(s): ( N17.9) Acute kidney failure, unspecified - Assessment / Plan Additional Assessment/Plan Details: Overall, renal function is improved. I think we can stop fluids at this point and saline lock IV. I will resume the Namenda. It's possible that coming off that medication and confusion has worsened, but most likely this is dementia in the hospital setting. I confirmed with the nurse the patient did not receive any narcotics last night , but I will discontinue those as the patient is not complaining of an overt amount of pain that would need narcotics at this point. We will stick with Tylenol for pain control when necessary. I am also going to reorder PT and OT. Continue eliquis for DVT for 3-6 months and then consider discontinuing as I do think this is a provoked DVT in the setting of an L5 compression fracture and decreased mobility. Await MRI results. Check CMP tomorrow to look at the liver enzymes. If they are still elevated, consider CT scan with triphasic contrast to look for any potential issues. No family here to discuss plan with today. I'll try to discuss with them when I can see them again.
--- NOTE | 2016-10-03 15:47 | PT.PROG ---
Progress Note Progress Note: 10/03/2016 2:00-2:30 S: Pt. hurt her back gardening about 1 month ago and for some reason she could not remember it started to really bother her so she came to the hospital. Over that month long period her function decreased and she had to start relying on a walker for mobility around her house and in the community. She lives with her and her house has 6 stairs to get into and 10 stairs to get up and down stairs to do laundry. She states she has had difficulty getting in and out of bed and getting into and out of her bathroom. Her bathroom is narrow and does not allow for the walker to be transported in, but they do have handrails on the wall and by the toilet. She states that she wants to be able to mow her lawn and take care of her house again. PMH: Medical History: 1. Hypertension. 2. Dementia. 3. Osteoporosis. 4. History of breast cancer status post left mastectomy. Remote. Surgical History: 1. Left mastectomy. 2. Cholecystectomy. 3. Hysterectomy O: Pt. walked down to PT from her room with a walker, recieved heat for 15 min, and performed exercise including seated marches, LAQ, sit to stands, step ups onto a 2" box, and a small obstacle course involving hurdles. Pt. then safely and effectively ambulated back to her room with walker assist A: Pt. has pain in her back, general weakness, and a decreased level of function. She also has problems with cognition and memory. Pt. would benefit from skilled PT to restore function and strength while allowing her back to safely heal. Problem List: 1. pain 2. general weakness 3. decreased function Short Term Goals: 1. decrease subjective pain to 3/10 with activity 2. perform 10x sit to stand 3. safely go up and down 10 stairs E Commerce Specialist Goals: 1. decrease pain to 0/10 with activity 2. perform 10x sit to betting clerks under 40 sec. 3. safely go up and down 20 stairs Treatment Plan: pt. will see PT 2x per day during the week and 1x per day on the weekend Initial Treatment: see objective Shashi Avendano [facility]
--- NOTE | 2016-10-03 23:16 | DI ---
MRI LUMBAR SPINE W/O CN,10/03/2016 11:04 AM: Clinical History: Back pain and sclerotic L3 lesion. Previous Exam: None at this facility. Findings: Multiplanar MR images are obtained through the lumbar spine without contrast. Bony alignment is anatomic. There is a compression deformity involving the superior endplate of L5 wi th some marrow edema suggesting an ongoing process. There is a compression deformity of the superior endplate of the L1 level as well without any marrow edema. The spinal cord descends normally with a normal conus at the L1 level. There is facet hypertrophy noted. There is no evidence of spondylolysis nor spondylolisthesis. The major vascular flow voids are unremarkable. The kidneys are unremarkable. Adrenals and spleen are unremarkable but not well evaluated. Individual intervertebral disc spaces: L1/2: There is compression of the superior endplate of the first lumbar vertebral body. There is a broad-based disc bulge at this level contributing to mild right and mild left neural kori inal narrowing with mild central canal stenosis. L2/3: There is disc desiccation and a broad-based disc bulge with annular fissuring and some facet an d ligamentum flavum hypertrophy contributing to mild central canal stenosis. There is mild to moderat e bilateral neural foraminal narrowing. L3/4: There is a broad-based disc bulge with annular fissuring and disc desiccation and combining wit h facet and ligamentum flavum hypertrophy to cause mild central canal stenosis and mild bilateral chelsy ral foraminal narrowing. L4/5: There is disc desiccation and a broad-based disc bulge and a compression deformity of the super ior endplate of L5 with some posterior protrusion of the superior endplate contributing to severe gamaliel tral canal stenosis with severe right and moderate left neural foraminal narrowing. L5/S1: The disc height is preserved and signal is preserved. There is some facet hypertrophy. There i s moderate to severe left and moderate right lateral recess stenosis. Impression: L1/2: There is compression of the superior endplate of the first lumbar vertebral body. There is a broad-based disc bulge at this level contributing to mild right and mild left neural kori inal narrowing with mild central canal stenosis. L2/3: There is disc desiccation and a broad-based disc bulge with annular fissuring and some facet an d ligamentum flavum hypertrophy contributing to mild central canal stenosis. There is mild to moderat e bilateral neural foraminal narrowing. L3/4: There is a broad-based disc bulge with annular fissuring and disc desiccation and combining wit h facet and ligamentum flavum hypertrophy to cause mild central canal stenosis and mild bilateral chelsy ral foraminal narrowing. L4/5: There is disc desiccation and a broad-based disc bulge and a compression deformity of the super ior endplate of L5 with some posterior protrusion of the superior endplate contributing to severe gamaliel tral canal stenosis with severe right and moderate left neural foraminal narrowing. L5/S1: The disc height is preserved and signal is preserved. There is some facet hypertrophy. There i s moderate to severe left and moderate right lateral recess stenosis.
[2016-10-04] MEDS: Apixaban 5 MG TABLET PO SCH (08:20)
[2016-10-04] MEDS: MEMANTINE 10 MG TABLET PO SCH (08:20)
[2016-10-04] MEDS: VERAPAMIL 240 MG PO SCH (08:20)
[2016-10-04 09:58] LABS: BLOOD UREA NITROGEN 21 mg/dL (7-22); BUN/CREATININE RATIO 16.15 (6-20); SERUM ALBUMIN 3.7 g/dL (3.5-4.8)
--- NOTE | 2016-10-04 10:28 | OTI REPORT ---
Thank you for the referral of Delia Taylor. She was seen on 10/03/16 for an occupational therapy inpatient evaluation secondary to an L5 compression fracture. SUBJECTIVE: The patient is an 85-year-old female. The patient reports she is feeling pretty well. The patient reports that she lives at home in [place] with her . Prior to admission the patient did not drive; she reports that her drives. The patient enjoys working in her flower garden. The patient reports she was sitting down in her flower bed and got up and started to have back pain. The patient reports that her home has six stairs upon entrance through the front door to get upstairs. There are hand rails on one side. There is no ramp. There are three steps to get to the back porch. The patient reports there is a basement and the laundry room is located in the basement. There is carpeting and throw rugs throughout the house as well as hardwood suresh. Bathroom set up includes a tub/shower combo with grab bars. The patient reports that she likes to take baths and is able to use the grab bars to get up at prior level of functioning. She does report that her uses a shower chair so she does have one available if she is unable to sit down in the bathtub; however, she would like to return to taking baths upon return to home. There are grab bars inside the shower and by the toilet, which is a standard toilet. The patient reports she sleeps in a standard bed and utilizes a front wheeled walker as well as a cane to get around inside her home. At prior level of function the patient completed laundry. She does report that she has to throw the clothes downstairs or walks them downstairs if it is just a small load. Her completes cooking tasks within the home. She does complete cleaning and discussed whether or not she would have someone help with cleaning upon discharge. Her completes grocery shopping and as stated above, completes all driving tasks including picking up prescriptions. She does have some assistance available within the house including her spouse. She would like to discharge to home. The patient does report some dizziness secondary to vertigo. She reports that she sits up slowly from her bed and usually just waits for the dizzy spells to pass. The patient reports no pain or concerns with upper extremity range of motion or strength. PAST MEDICAL HISTORY: Past medical history can be found in the patient's medical record. OBJECTIVE FINDINGS: General observations: The patient was oriented to person/place/reason for hospitalization. She was unable to identify the correct date; however, she did identify that it was the month of September. Pain: The patient reports no pain at rest and a pain level of 8/10 on the verbal analog scale (0=no pain, 10=worst pain) with movement in the low back region. Range of motion/Strength: Range of motion and strength of the upper extremities were tested bilaterally. Range of motion for shoulder flexion, abduction, elbow flexion/extension, wrist flexion/extension, internal/external rotation, and finger range of motion was within functional limits bilaterally. The patient demonstrates strength of 4/5 for upper extremities bilaterally with no concerns. Ambulation: The patient ambulated with use of a front wheeled walker with no assistance required for balance. Transfers: The patient performed sit to stand transfers with modified independence with use of walker once standing. Activities of daily living: The patient performed seated showering task with hand held shower with modified independence with the use of a shower chair and supervision for safety. The patient was able to wash and dry upper and lower extremities and back with no concerns. The patient dressed independently following shower including upper and lower extremities and donning shoes. The patient reports that she has a surgical technology instructor available at home and was not interested in a new surgical technology instructor or a sock aide as she is able to don and doff socks independently. The patient performed toileting task with modified independence with use of grab bars and the use of a raised toilet seat. Cognition: The patient also participated in the Basilio Cognitive Assessment ( MoCA) to assess cognitive functioning. The patient scored 17/30 which correlates with a MODIFIED cognitive impairment but is on the border with MILD. Specific deficits include short term memory and recall. Further cognitive testing is recommended. The patient does report that she receives assistance from her for some cognitive tasks such as filling her daily pill boxes for the week. ASSESSMENT: Problem List: Decreased cognitive functioning Decreased ability to perform activities of daily living Pain Generalized weakness Short-Term Goals: To be met by discharge from inpatient: Patient will perform simulated or complete bathing tasks to include getting in and out of the bathtub with the use of grab bars safely. Patient will report a pain level less than or equal to 3/10. Patient will increase bilateral upper extremity strength to 4+/5. Long-Term Goals: To be met following discharge from inpatient: Patient will return to home at prior level of functioning with assistance from as needed for daily activities including cooking and grocery shopping as well as cognitive assistance as needed to perform independently and safely within the home. TREATMENT PLAN: Patient will be seen B.I.D during the week and one time per day over the weekend as an inpatient until discharge. It is recommended that the patient receive further cognitive testing to ensure safety upon return to home. INITIAL TREATMENT: Treatment today consisted of the initial evaluation followed by ADLs including showering task to include washing and drying upper and lower extremities, dressing task to include dressing upper and lower extremities, toileting including toilet transfers and cleansing, and functional ambulation with front wheeled walker, and sit to stand transfers with use of front wheeled walker. Dictated by: BURAK Carranza/TIMOTHY Supervised by: EDGAR Welch/Thong BARLOW
--- NOTE | 2016-10-04 12:08 | PT.PROG ---
Progress Note Progress Note: S. Patient stated that she is feeling better this morning. However she continues to have back pain and pain in her legs. O. Patient ambulated 175 feet to the therapy gym where she had heat on her back x 10 minutes then was requested to return to her room. she ambulated 175 feet back to her room where she performed seated exercises in the form of; long arc quads, heel toe raises, marches and sit to stands all x 10 bilaterally. A. Patient tolerated exercises well, she continues to struggle with pain in her legs however she was able to perform exercises and would continue to benefit from skilled therapy to increase strength, mobility and endurance. P. Continue POC.
[2016-10-04 14:16] VITALS: RESP 18; TEMP 97.8
--- NOTE | 2016-10-04 14:45 | DI ---
CT ABD W/CN AND PELVIS W/CN,10/04/2016 11:03 AM: Clinical History: Elevated liver enzymes. Previous Exam: CT bone density performed January 15, 2012 Findings: Multiple helically acquired CT images are obtained through the abdomen and pelvis following the intra venous administration of contrast, and demonstrate a hiatal hernia which was not seen on the prior ex am. The liver demonstrates normal enhancement pattern without focal lesions. The gallbladder is not seen. The common bile duct is prominent but within normal limits for patient's age measuring 8 mm in diameter. The pancreas is normal. The adrenals and kidneys are unremarkable. The spleen is unremarkable. There is a small left pleural effusion. There are multiple colonic diverticula noted and a large amount of stool throughout the colon. There is no CT evidence of acute diverticulitis. Patient is status post hysterectomy. The urinary bladder i s unremarkable. Mild degenerative changes of the spine are noted. There is a dense focus involving the superior endplate of the third lumbar vertebral body most consis tent with a bone island. There is a compression deformity of the fifth lumbar vertebral body predominantly involving compressi on of the superior L5 endplate. There is also a compression deformity of the superior endplate of the third lumbar vertebral body. Impression: 1. Hiatal hernia. 2. No CT evidence of metastatic disease to the liver. 3. Compression deformities of the fifth and third lumbar vertebral bodies.
--- NOTE | 2016-10-04 16:15 | OT.PROG ---
Progress Note Progress Note: S: Pt reports that her back is feeling better today and that she is ready to go home. O: Pt was seen fro 15:15 to 15:55 for skilled occupational therapy related to generalized strengthening. Pt completed UE bike X 5 min on low resistance. Pt completed UE strengthening on wall pulleys for shoulder extension, triceps, biceps, and rows 1.5 kg X 10-20 bilaterally. MHP was applied to low back X 10 min. to reduce pain for pt, while pt completed bilateral hand strengthening for gross grasp. A: Pt did well with UE exercise and reports being tired following therapeutic exercise. Pt performed all transfers and ambulation with FWW safely. P: Continue POC. BURAK Carranza/TIMOTHY
--- NOTE | 2016-10-04 16:24 | PT.PROG ---
Progress Note Progress Note: 10/04/2016 4:00-4:30 S: pt. reports she is feeling better than she did yesterday O: pt. recieved heat and performed exercise including marches and LAQ x10 2# seated clams and ball sqeezes x10, 10x sit to stand and step ups on 2# box 5x each leg. she finished therapy with a walk back to her room A: pt. is becomin more functional with the exercise, and has a lower subjective pain report with movement. P: continue to progress functional activity as tolerated.
--- NOTE | 2016-10-04 16:59 | DCSUMMARY ---
Hospitalization Summary Admit Date: 10/01/16 Discharge Date: 10/04/16 Primary Diagnosis:: resolved acute renal failure Secondary Diagnosis:: L5 compression fracture Acute DVT of the superficial femoral and popliteal veins on the left leg. Elevated liver enzymes of unclear etiology. Hospital Course: This very pleasant 85-year-old female who suffers from dementia who came in with complaints of bilateral leg pain and was found to have a left lower extremity DVT. It was nonocclusive, but was present in the superficial femoral vein and the popliteal vein as well. The patient was also noted to be in renal failure, acutely, and she was admitted. In terms of her renal failure, chlorthalidone and angiotensin receptor dileep were held. These were not resumed and I think the patient should just continue off of these. Her baseline creatinine appears to be about 1.2 and she probably has stage III chronic kidney disease with a clearance somewhere between 40 and 60 mL's per minute. She seemed to do okay in terms of verapamil and her systolic pressures were mostly in the 100s to 140s range with some variability. No evidence of SVT during the hospital stay but she has had this in the past I think verapamil makes sense to continue. In terms of the DVT, we discussed anticoagulants for therapy, including risks and benefits and bleeding risks and reversibility components or lack thereof, and the family opted for eliquis. We started this at 10 mg twice daily dosing and will drop that to 5 mg twice a day for 3-6 months in the next 4 days. I think this is a provoked blood clot with in mobility in the setting of what we found and determined to be an L5 compression fracture. MRI scan was done of the back and x-ray was done of the back, and there is a lot of arthritic changes, spinal stenosis, some nerve root compressions, and an L1 and an L5 compression fracture as well as an L3 intravertebral body bony island. I advised no surgery and continued physical therapy for the L5 compression fracture. The AST and ALT and alkaline phosphatase showed isolated elevation. We did a CT scan of the abdomen and pelvis, an ultrasound of the right upper quadrant, and reviewed medications and could not find a cause for this. There appears to be no evidence of metastatic lesions in the liver. At least at this time. I have ordered a viral hepatitis panel and think that should be reviewed in the clinic. Given the resolution of all these issues above, the patient today states that she's not having any chest pain, no shortness of breath, and she seems ready to go home. Her family seems comfortable with that as well. We did discuss one last issue of the dementia. I recommend initially stopping Namenda as as a single agent does not, to use it for dementia and thus affecting this can certainly be questioned. However the patient had a day of worsening altered mental status that improved after resumption of Namenda. For now we will continue that. The patient's that he can try to determine at home if it seems helpful or not. It seems helpful for her mood and she was much happier in terms of her disposition on the Namenda than not. Assessment and Plan: 1. As per discharge assessments noted 2. Disposition: Patient is discharged home. 3. Condition on discharge, stable and improved. 4. Diet: regular diet 5. Activities: resume normal activities and continue physical therapy 6. Follow-Up: 1. See Bonnie Rubio next week 2. 7. Medications at the Time of Discharge: Home Medications Medication Instructions Recorded Confirmed Type Multivitamin with Minerals [One 1 tab PO QD tab 09/03/13 10/01/16 History Daily 50 Plus] Cyanocobalamin (Vitamin B-12) 2,500 mcg PO DAILY tab 08/21/16 10/01/16 History [Vitamin B12] Memantine HCl 1 tab PO BID #60 tab 08/21/16 10/01/16 [facility] [place]-3 Fatty Acids/Fish Oil 1 each PO DAILY cap 08/21/16 10/01/16 History [[place] 3 Fish Oil Softgel] Verapamil HCl [Verapamil Sr] 1 cap PO QD #30 cap 08/21/16 10/01/16 Clinic Apixaban [Eliquis] 5 mg PO BID #60 tablet 10/04/16 Rx 8. Time, care, counseling and coordination of care for this discharge is greater than 30 minutes. Exam - Vitals Vital Signs: Vital Signs Temperature 97.8 F Temperature Source Temporal Artery Scan Pulse Rate [Apical] 64 Pulse Rate [Pulse Oximeter] 65 Respiratory Rate 18 Blood Pressure [Right Arm] 149/66 Pulse Ox 95 Oxygen Delivery Method Room Air Height 5 ft 2 in Weight 121 lb 3.2 oz - General General Appearance: POSITIVE: No Acute Distress, Cooperative - Eye Eye Exam: POSITIVE: No Scleral Icterus - ENT ENT Exam: POSITIVE: Mucous Membranes Moist - Respiratory Respiratory Exam: POSITIVE: Clear to Auscultation - Bilaterally, Breathing Non Labored - Cardiovascular Cardiovascular Exam: POSITIVE: RRR, No Murmur, No Clicks, No Gallops, No Rubs, No JVD - GI/Abdominal GI/Abdominal Exam: POSITIVE: Normal Bowel Sounds, Non Tender, Non Distended, Soft - Extremities Extremities Exam: POSITIVE: No Clubbing Present, No Edema Present, No Cyanosis Present - Neurological Neurological Exam: POSITIVE: Alert, Normal Gait (With walker.), No Facial Droop , Speech Intact / Clear, Moves All Extremities Equally, Altered - Psychiatric Psychiatric Exam: POSITIVE: Normal Affect, Normal Mood Data Perinent Studies: Laboratory Results 10/01/16 10/01/16 10/02/16 Range/Units 21:46 21:52 00:00 WBC 10.70 (4.8-10.8) 10^3/uL RBC 4.03 L (4.20-5.40) 10^6/uL Hgb 12.5 (12.0-16.0) g/dL Hct 38.7 (37.0-47.0) % MCV 96.0 (81-99) FL MCH 31.0 (27-31) PG MCHC 32.3 L (33-37) g/dL RDW Std Deviation 43.5 (39-50) fL RDW Coeff of Deshawn 12.8 (11.5-14.5) % Plt Count 181 (140-350) 10*3/uL MPV 10.9 (7.4-12.2) FL Immature Gran % (Auto) 0.6 (0-5) % Neut % (Auto) 74.7 (50-80) % Lymph % (Auto) 13.2 (10-50) % [place] % (Auto) 8.0 (5-15) % Eos % (Auto) 2.9 (0-8) % Baso % (Auto) 0.6 (0-1) % Immature Gran # (Auto) 0.06 10*3/UL Neut # (Auto) 8.00 10*3/UL Lymph # (Auto) 1.41 10*3/uL [place] # (Auto) 0.86 H (0.3-0.8) 10*3/UL Eos # (Auto) 0.31 10*3/UL Baso # (Auto) 0.06 10*3/UL WBC Morphology Comment Normal morphology (NORM) Plt Morphology Comment Normal morphology (NORM) RBC Morph Comment Normal morphology (NORM) Sodium 137 (135-145) meq/L Potassium 5.7 H (3.8-5.2) meq/L Chloride 97 L (98-112) meq/L Carbon Dioxide 30 (23-33) meq/L Anion Gap 10 (5-20) BUN 39 H (7-22) mg/dL Creatinine 1.6 H (0.50-1.20) mg/dL Estimated GFR Crutching Contractor BUN/Creatinine Ratio 24.37 H (6-20) Glucose 98 (78-110) mg/dL Calculated Osmolality 292.0 (267-292) mOsm/kg Calcium 10.6 (8.7-10.7) mg/dL Magnesium 2.8 H (1.6-2.4) mg/dL Total Bilirubin 1.0 (0.3-1.2) mg/dL AST 305 H (8-39) IU/L ALT 309 H (9-52) IU/L Alkaline Phosphatase 280 H (38-126) IU/L C-Reactive Protein 1.7 H (0.0-0.9) mg/dL Total Protein 7.4 (6.1-8.0) g/dL Albumin 4.1 (3.5-4.8) g/dL Globulin 3.3 (2.50-4.10) g/dL Albumin/Globulin Ratio 1.20 L (1.3-2.0) mg/g Amylase 159 H (30-110) U/L Lipase 148 (23-300) IU/L Ur Collection Type Cath specimen Urine Color Yellow Urine Clarity Clear (CLEAR) Urine pH 7.0 (5.0-8.5) Ur Specific [place] 1.010 (1.005-1.030) Urine Protein Negative (NEG) mg/dl Urine Glucose (UA) Negative (NEG) mg/dL Urine Ketones Negative (NEG) Urine Occult Blood Negative (NEG) Urine Nitrate Negative (NEG) Urine Bilirubin Negative (NEG) Urine Urobilinogen 0.2 (0.2) EU/dL Ur Leukocyte Esterase Negative (NEG) Ur Culture Indicated? Culture not set 10/02/16 10/03/16 10/04/16 Range/Units 04:40 05:40 09:48 WBC 7.61 (4.8-10.8) 10^3/uL RBC 3.62 L (4.20-5.40) 10^6/uL Hgb 11.1 L (12.0-16.0) g/dL Hct 35.0 L (37.0-47.0) % MCV 96.7 (81-99) FL MCH 30.7 (27-31) PG MCHC 31.7 L (33-37) g/dL RDW Std Deviation 43.1 (39-50) fL RDW Coeff of Deshawn 12.7 (11.5-14.5) % Plt Count 146 (140-350) 10*3/uL MPV 11.2 (7.4-12.2) FL Immature Gran % (Auto) 0.4 (0-5) % Neut % (Auto) 69.9 (50-80) % Lymph % (Auto) 17.5 (10-50) % [place] % (Auto) 8.0 (5-15) % Eos % (Auto) 3.7 (0-8) % Baso % (Auto) 0.5 (0-1) % Immature Gran # (Auto) 0.03 10*3/UL Neut # (Auto) 5.32 10*3/UL Lymph # (Auto) 1.33 10*3/uL [place] # (Auto) 0.61 (0.3-0.8) 10*3/UL Eos # (Auto) 0.28 10*3/UL Baso # (Auto) 0.04 10*3/UL WBC Morphology Comment Normal morphology (NORM) Plt Morphology Comment Normal morphology (NORM) RBC Morph Comment Normal morphology (NORM) Sodium 138 141 141 (135-145) meq/L Potassium 4.7 3.9 3.6 L (3.8-5.2) meq/L Chloride 103 112 109 (98-112) meq/L Carbon Dioxide 27 23 24 (23-33) meq/L Anion Gap 8 6 8 (5-20) BUN 36 H 25 H 21 (7-22) mg/dL Creatinine 1.4 H 1.2 1.3 H (0.50-1.20) mg/dL Estimated GFR Crutching Contractor Crutching Contractor BUN/Creatinine Ratio 25.71 H 20.83 H 16.15 (6-20) Glucose 86 85 97 (78-110) mg/dL Calculated Osmolality 292.0 294.0 H 294.0 H (267-292) mOsm/kg Calcium 9.8 9.1 10.0 (8.7-10.7) mg/dL Magnesium (1.6-2.4) mg/dL Total Bilirubin 1.0 0.7 (0.3-1.2) mg/dL AST 354 H 319 H (8-39) IU/L ALT 339 H 423 H (9-52) IU/L Alkaline Phosphatase 258 H 331 H (38-126) IU/L C-Reactive Protein (0.0-0.9) mg/dL Total Protein 6.2 6.5 (6.1-8.0) g/dL Albumin 3.4 L 3.7 (3.5-4.8) g/dL Globulin 2.8 2.8 (2.50-4.10) g/dL Albumin/Globulin Ratio 1.20 L 1.30 (1.3-2.0) mg/g Amylase (30-110) U/L Lipase (23-300) IU/L Ur Collection Type Urine Color Urine Clarity (CLEAR) Urine pH (5.0-8.5) Ur Specific [place] (1.005-1.030) Urine Protein (NEG) mg/dl Urine Glucose (UA) (NEG) mg/dL Urine Ketones (NEG) Urine Occult Blood (NEG) Urine Nitrate (NEG) Urine Bilirubin (NEG) Urine Urobilinogen (0.2) EU/dL Ur Leukocyte Esterase (NEG) Ur Culture Indicated? Patient Problems - Patient Problem List (1) DVT, femoral, acute Current Visit: Yes Status: Acute Qualifiers: Laterality: left Qualified Description: Acute deep vein thrombosis (DVT ) of femoral vein of left lower extremity Qualifier Code(s): (I82.412) Acute embolism and thrombosis of left femoral vein (2) Deep venous thrombosis of left popliteal vein Current Visit: Yes Status: Acute Qualifiers: Chronicity: acute Qualified Description: Acute deep vein thrombosis ( DVT) of popliteal vein of left lower extremity Qualifier Code(s): (I82.432 ) Acute embolism and thrombosis of left popliteal vein (3) Compression fracture of L5 lumbar vertebra Current Visit: Yes Status: Acute (4) Elevated liver enzymes Current Visit: Yes Status: Acute (5) Hypertension Current Visit: Yes Status: Acute Qualifiers: Hypertension type: essential hypertension Qualified Description: Essential hypertension Qualifier Code(s): (I10) Essential (primary) hypertension (6) Dementia Current Visit: Yes Status: Acute Qualifiers: Dementia type: Alzheimer's disease Alzheimer's disease onset: late- onset Dementia behavioral disturbance: without behavioral disturbance Qualified Description: Late onset Alzheimer's disease without behavioral disturbance Qualifier Code(s): (G30.1) Alzheimer's disease with late onset , (F02.81) Dementia in other diseases classified elsewhere with behavioral disturbance (7) Acute renal failure Current Visit: Yes Status: Resolved Qualifiers: Acute renal failure type: unspecified Qualified Description: Acute renal failure, unspecified acute renal failure type Qualifier Code(s): ( N17.9) Acute kidney failure, unspecified
--- NOTE | 2016-10-05 12:25 | OT AM DAY ---
Diagnosis : L5 Compression Fracture AM - Occupational Therapy S: The patient reports she is doing pretty good this morning. Her son and were present during parts of the session. O: The patient was able to come from sit to stand with contact guard assist. We practiced putting on her back brace; she needed min assist to put on brace. She then walked to the shower room. Once in the shower room she needed cues to sit on the shower chair. The patient was able to shower herself with stand by assist and max assist for her back. She did have the flexibility to wash her lower extremities, feet, and upper extremities. The patient then dried self off. Once standing, the patient did have one incident where she lost her balance and slightly fell in a backward position and the therapist did need to stop her from falling. After set up the patient was able to dress herself with stand by assist. She then walked to her room and completed hygiene activities at the sink while standing x10 minutes. A: The patient did well with the exception of one incident where she began to fall backwards. Her did state that her granddaughter comes over to help her whenever she showers or takes a bath. It is recommended that she use the shower chair in the shower. This was discussed with the patient and her . She was advised to not lay down in the bathtub. At this point the patient's balance is still somewhat questionable. P: Continue seeing patient BID during the week and one time per day over the weekend for upper extremity strengthening, ADLs, and overall functional mobility. YEN
[2016-10-06 11:50] LABS: HEP B CORE IGM ANTIBODY Negative (Negative); HEPATITIS A IGM Negative (Negative); HEPATITIS B SURFACE AG Negative (Negative)
== END 2016-10-04 17:27 | disposition home or self-care (01) | DRG 683 ==
LOC: ER 21:18 → MED/SURG 22:27
PROVIDERS: ADMIT Family Medicine; ATTEND Family Medicine
DX: I82.4Z2 Acute embolism and thrombosis of unspecified deep veins of left distal lower extremity (principal); E87.6 Hypokalemia; N28.9 Disorder of kidney and ureter, unspecified; N17.9 Acute kidney failure, unspecified; M48.56XA Collapsed vertebra, not elsewhere classified, lumbar region, initial encounter for fracture; I82.412 Acute embolism and thrombosis of left femoral vein; R94.5 Abnormal results of liver function studies; I10 Essential (primary) hypertension; F03.90 Unspecified dementia, unspecified severity, without behavioral disturbance, psychotic disturbance, mood disturbance, and anxiety
CPT/HCPCS: 36415; 72100; 72148; 74177; 76705; 80048; 80053; 81003; 82150; 83690; 83735; 85025; 86140; 86705; 86709; 86803; 87340; 93005; 93010; 93971; 94761; 97110; 97161; 97166; 97530; 97535; 99285; J2405; J7030

== ENCOUNTER → 2016-10-08 | Outpatient (CLI) | payer OTHER, BC ==
[2016-10-08 15:25] LABS: BASOPHILS # (AUTO) 0.03 10*3/UL; BASOPHILS % (AUTO) 0.5 % (0-1); EOSINOPHILS # (AUTO) 0.26 10*3/UL; EOSINOPHILS % (AUTO) 4.6 % (0-8); HEMATOCRIT 36.5 % (37.0-47.0); HEMOGLOBIN 11.6 g/dL (12.0-16.0); LYMPHOCYTES # (AUTO) 0.84 10*3/uL; MEAN CORPUSCULAR HEMOGLOBIN 31.1 PG (27-31); MEAN CORPUSCULAR HGB CONC 31.8 g/dL (33-37); MEAN CORPUSCULAR VOLUME 97.9 FL (81-99); MEAN PLATELET VOLUME 11.4 FL (7.4-12.2); MONOCYTES % (AUTO) 8.8 % (5-15); NEUTROPHILS # (AUTO) 4.07 10*3/UL; NEUTROPHILS % (AUTO) 71.2 % (50-80); PLATELET MORPHOLOGY COMMENT NORMAL MORPHOLOGY (NORM); RBC MORPHOLOGY COMMENT NORMAL MORPHOLOGY (NORM); RED BLOOD COUNT 3.73 10^6/uL (4.20-5.40); WBC MORPHOLOGY COMMENT NORMAL MORPHOLOGY (NORM)
[2016-10-08 15:28] LABS: BUN/CREATININE RATIO 14.16 (6-20); CALCIUM 11.1 mg/dL (8.7-10.7); SERUM ALBUMIN 4.2 g/dL (3.5-4.8)
[2016-10-11 15:41] LABS: A/G RATIO 0.89 (()); ALB PEP SER 3.3 g/dL (3.4-4.7); ALP1 GLOB 0.4 g/dL (0.1-0.3); ALP2 GLOB 0.9 g/dL (0.6-1.0)
== END ==
LOC: MOB LAB 12:32
PROVIDERS: ATTEND Nurse Practitioner Family
DX: N17.9 Acute kidney failure, unspecified (principal); I82.A12 Acute embolism and thrombosis of left axillary vein; I10 Essential (primary) hypertension; R60.0 Localized edema; D64.9 Anemia, unspecified; E83.52 Hypercalcemia; R94.5 Abnormal results of liver function studies; F03.90 Unspecified dementia, unspecified severity, without behavioral disturbance, psychotic disturbance, mood disturbance, and anxiety; Z85.3 Personal history of malignant neoplasm of breast
CPT/HCPCS: 36415; 80053; 82728; 83010; 84155; 84165; 85025; 85045; 99215; G0463

== ENCOUNTER → 2016-10-10 | Outpatient (CLI) | payer OTHER, BC ==
[2016-10-10 09:42] LABS: MAGNESIUM 1.9 mg/dL (1.6-2.4); PHOSPHORUS 3.1 mg/dl (2.4-4.3)
[2016-10-11 13:24] LABS: pH 7.4 (())
[2016-10-11 15:41] LABS: A/G RATIO 0.96 (()); ALB PEP SER 3.4 g/dL (3.4-4.7); ALP1 GLOB 0.4 g/dL (0.1-0.3); GAMMA GLOBS 0.9 g/dL (0.6-1.6)
== END ==
LOC: LAB 08:42
PROVIDERS: ATTEND Nurse Practitioner Family
DX: E83.52 Hypercalcemia (principal); R60.0 Localized edema; I10 Essential (primary) hypertension; N17.9 Acute kidney failure, unspecified; I82.A12 Acute embolism and thrombosis of left axillary vein; D64.9 Anemia, unspecified; F03.90 Unspecified dementia, unspecified severity, without behavioral disturbance, psychotic disturbance, mood disturbance, and anxiety; Z85.3 Personal history of malignant neoplasm of breast
CPT/HCPCS: 36415; 82306; 82330; 83735; 83970; 84100; 84155; 84165; 84443; 85652

== ENCOUNTER → 2016-10-12 | Outpatient (CLI) | payer OTHER, BC ==
--- NOTE | 2016-10-13 09:56 | DI ---
WHOLE BODY BONE SCAN, 10/12/2016 12:30 PM : Clinical History: Idiopathic hypercalcemia. Previous Exam: None at this facility. 3 hours after IV injection of 33 mCi of [id number], whole body anterior and posterior images are obtain ed. Both kidneys are visualized. There is increased activity in the body of L5 in this patient had a rece nt CT scan of the abdomen and pelvis performed on 10/04/2016, that revealed a healed or healing compre ssion fracture at that level. There is no other focus of abnormally increased or decreased activity i n the axial skeleton. Mild increased activity is noted in the right and left wrists consistent with a rthritis. Readin. The increased activity in the body of L5 is consistent with a healing or healed compression fract ure. Mild increased activity is present in both wrists consistent with degenerative arthritic disease . 2. The scans are otherwise normal.
== END ==
LOC: NM 12:36
PROVIDERS: ATTEND Nurse Practitioner Family
DX: E83.52 Hypercalcemia (principal); Z85.3 Personal history of malignant neoplasm of breast
CPT/HCPCS: 78306; A9503

== ENCOUNTER → 2016-10-23 | Outpatient (CLI) | payer OTHER, BC | LOC: MMPC 10:00 | PROVIDERS: ATTEND Specialist | DX: D50.8 Other iron deficiency anemias (principal); I10 Essential (primary) hypertension; I80.8 Phlebitis and thrombophlebitis of other sites; I47.1 Supraventricular tachycardia; I49.1 Atrial premature depolarization; R79.89 Other specified abnormal findings of blood chemistry | CPT/HCPCS: 82272; 99213; G0463 ==

== ENCOUNTER → 2016-11-08 | Outpatient (CLI) | payer OTHER, BC | LOC: MMPC 09:00 | PROVIDERS: ATTEND Nurse Practitioner Family | DX: I10 Essential (primary) hypertension (principal); F03.90 Unspecified dementia, unspecified severity, without behavioral disturbance, psychotic disturbance, mood disturbance, and anxiety; M54.41 Lumbago with sciatica, right side | CPT/HCPCS: 99214; G0463 ==

== ENCOUNTER → 2016-11-20 | Outpatient (CLI) | payer OTHER, BC ==
[2016-11-20 14:51] LABS: BASOPHILS # (AUTO) 0.07 10*3/UL; BASOPHILS % (AUTO) 1.1 % (0-1); EOSINOPHILS # (AUTO) 0.12 10*3/UL; EOSINOPHILS % (AUTO) 1.9 % (0-8); HEMATOCRIT 40.4 % (37.0-47.0); HEMOGLOBIN 13.5 g/dL (12.0-16.0); LYMPHOCYTES # (AUTO) 1.84 10*3/uL; MEAN CORPUSCULAR HEMOGLOBIN 30.5 PG (27-31); MEAN CORPUSCULAR HGB CONC 33.4 g/dL (33-37); MEAN CORPUSCULAR VOLUME 91.4 FL (81-99); MEAN PLATELET VOLUME 11.5 FL (7.4-12.2); MONOCYTES # (AUTO) 0.46 10*3/UL (0.3-0.8); MONOCYTES % (AUTO) 7.2 % (5-15); NEUTROPHILS # (AUTO) 3.94 10*3/UL; NEUTROPHILS % (AUTO) 61.2 % (50-80); PLATELET MORPHOLOGY COMMENT NORMAL MORPHOLOGY (NORM); RBC MORPHOLOGY COMMENT NORMAL MORPHOLOGY (NORM); RED BLOOD COUNT 4.42 10^6/uL (4.20-5.40); WBC MORPHOLOGY COMMENT NORMAL MORPHOLOGY (NORM)
[2016-11-20 15:15] LABS: BLOOD UREA NITROGEN 29 mg/dL (7-22); CALCIUM 11.9 mg/dL (8.7-10.7); SERUM ALBUMIN 4.4 g/dL (3.5-4.8)
== END ==
LOC: LAB 14:32
PROVIDERS: ATTEND Internal Medicine
DX: D64.9 Anemia, unspecified (principal)
CPT/HCPCS: 36415; 80053; 83010; 83615; 85025; 85045; 86880

== ENCOUNTER 2019-01-06 15:25 | Inpatient (IN) ==
[2019-01-06] MEDS ORDERED: Diltiazem Drip 125 MG in Sodium Chloride 0.9% 100 ML IV ONE (15:34)
[2019-01-06] MEDS ORDERED: Sodium Chloride 0.9% 1,000 ML PRIMARY IV ONE (15:34)
[2019-01-06] MEDS ORDERED: DILTIAZEM 5 MG/ML - 5 ML IV ONE (15:34)
[2019-01-06] MEDS ORDERED: ONDANSETRON 4 MG/2 ML VIAL IVP ONE (15:34)
[2019-01-06 15:59] LABS: BASOPHILS # (AUTO) 0.02 10*3/UL; BASOPHILS % (AUTO) 0.3 % (0-1); EOSINOPHILS # (AUTO) 0.09 10*3/UL; EOSINOPHILS % (AUTO) 1.5 % (0-8); Hematocrit [HCT] 42.4 % (37.0-47.0); Hemoglobin [HGB] 12.9 g/dL (12.0-16.0); LYMPHOCYTES # (AUTO) 0.99 10*3/uL; MEAN CORPUSCULAR HGB CONC 30.4 g/dL (33-37); MEAN CORPUSCULAR VOLUME 99.8 FL (81-99); MEAN PLATELET VOLUME 10.8 FL (7.4-12.2); MONOCYTES # (AUTO) 0.51 10*3/UL (0.3-0.8); MONOCYTES % (AUTO) 8.6 % (5-15); NEUTROPHILS % (AUTO) 72.8 % (50-80); RED BLOOD COUNT 4.25 10^6/uL (4.20-5.40)
[2019-01-06 16:12] LABS: BUN/CREATININE RATIO 24.66 (6-20); SERUM ALBUMIN 4.5 g/dL (3.5-4.8)
[2019-01-06 16:14] LABS: PLATELET MORPHOLOGY COMMENT NORMAL MORPHOLOGY (NORM); RBC MORPHOLOGY COMMENT NORMAL MORPHOLOGY (NORM); WBC MORPHOLOGY COMMENT NORMAL MORPHOLOGY (NORM)
[2019-01-06] MEDS ORDERED: oxyCODONE ER 10 MG TAB PO ONE (17:41)
[2019-01-06] MEDS ORDERED: oxyCODONE IR Tab 5 MG TAB PO ONE (17:49)
[2019-01-06] MEDS ORDERED: POLYETHYLENE GLYCOL 3350 17 GM POWDER PO PRN (18:00)
[2019-01-06] MEDS ORDERED: LIDOCAINE W/ SODIUM BICARB 0.5 ML SYR SUBD PRN (18:00)
[2019-01-06] MEDS ORDERED: Diltiazem Drip 125 MG in Sodium Chloride 0.9% 100 ML IV SCH (18:00)
[2019-01-06] MEDS ORDERED: Potassium Chloride Tab 10 MEQ TAB PO SCH (21:00)
[2019-01-06] MEDS ORDERED: oxyCODONE ER 10 MG TAB PO SCH (21:00)
[2019-01-06] MEDS ORDERED: Sodium Chloride 0.9% 250 ML PRIMARY IV ONE ×2 (21:12→21:54)
[2019-01-06] MEDS ORDERED: DILTIAZEM 60 MG TABLET PO ONE (21:55)
[2019-01-06] MEDS ORDERED: Apixaban Tab 2.5 MG TABLET PO ONE (21:55)
[2019-01-06] MEDS ORDERED: Sodium Chloride 0.9% 500 ML PRIMARY IV ONE (23:18)
[2019-01-07] MEDS ORDERED: AMIODARONE 360 MG/200 ML IV SCH (02:00)
[2019-01-07 03:09] VITALS: TEMP 98.2
[2019-01-07 04:03] VITALS: BP 88/69; RESP 16; O2SAT 95
[2019-01-07] MEDS ORDERED: CHOLECALCIFEROL 1000 IU TABLET PO SCH (09:00)
[2019-01-07] MEDS ORDERED: Apixaban Tab 2.5 MG TABLET PO SCH (09:00)
[2019-01-07] MEDS ORDERED: oxyCODONE IR Tab 5 MG TAB PO PRN (11:00)
== END 2019-01-07 03:52 | disposition short-term general hospital (02) | DRG 310 ==
LOC: ER 15:25 → ICU 17:36
PROVIDERS: ADMIT Family Medicine; ATTEND Family Medicine